=== PATIENT | female | born 1985 | race Caucasian/White ===

== ENCOUNTER 2020-07-15 13:00 | Outpatient (RCR) | payer MEDICAID, SELFPAY ==
[2020-07-08 13:13] VITALS: BP 139/83; PULSE 84; RESP 16; TEMP 36.6; BMI 32.5
--- NOTE | 2020-07-08 13:52 | PCM.WC.PN ---
(1) Spina bifida Status: Chronic Code(s): Q05.9 - Spina bifida, unspecified (2) Peripheral neuropathy Status: Chronic Code(s): G62.9 - Polyneuropathy, unspecified (3) Scoliosis Status: Chronic Code(s): M41.9 - Scoliosis, unspecified (4) Open wound of left great toe Status: Acute Qualifiers: Encounter type: subsequent encounter Qualified Code(s): S91.102D - Unspecified open wound of left great toe without damage to nail, subsequent encounter Code(s): S91.102A - Unspecified open wound of left great toe without damage to nail, initial encounter (5) History of spinal fusion Status: Chronic Code(s): Z98.1 - Arthrodesis status Comment: 2 surgeries. 1 at 1 YOA and the second at 16 YOA Type of Wound Date of Service: 07/08/20 Chief Complaint: She is here to have a wound on the left great toe assessed. She is concerned about the callous formation and the skin peeling. History of Wound: She first noticed the wound on the plantar surface of the L great toe on 06/18/20. She was seen by her PCP and he referred her to the WC ctr at [facility]. She has been dressing the wound with a dry gauze. Progress of Wound: The wound has gotten smaller however there is increased callous formation and some desquamation. Subjective: Aurea Carranza is a 35 YO female with a PMH of spina bifida and peripheral neuropathy in her feet who first noticed a wound on the plantar surface of the left great toe on 06/18/2020. Denied pain in her foot and also denied fever, purulent drainage or erythema of the toe. She saw her primary care physician who referred her to the wound care center. Aurea examines her feet every night. She does on occasion walk barefoot in her house. She does not have any pets. She cannot tell me if she stepped on something that cause the wound initially. She has been applying a dry dressing to the wound and it has gotten much smaller. She is concerned because she now has a callous on the plantar surface of the left great toe and the skin has been peeling off. - Physical Exam Vital Signs Temp Pulse Resp BP 97.8 F 84 16 139/83 H 07/08/20 13:13 07/08/20 13:13 07/08/20 13:13 07/08/20 13:13 General: Alert, Cooperative, No apparent distress, Well developed, Well nourished Extremities: No clubbing, No cyanosis, Capillary Refill Less than 3 Seconds, Peripheral Pulses Normal, - - small amount of ankle edema on the left...most aparent at the medial malleolus. There is a small wound apparent on the plantar surface of the L great toe and there is callous overlying the wound and the surrounding area. There is no erythema and no purulent DC. Skin: - - there was good blood flow from the wound when the callous was debrided. The wound was probed and I did not feel a foreign body. She had no pain with palpation. Wound Measurements and Assessment WC - Nurse 1 - General Ulcer Measurement Start: 07/08/20 13:13 Freq: Status: Active Protocol: Activity Type Activity Date Activity User E-Sign Co-Sign Detail Recorded Client Recorded Date Recorded By Document 07/08/20 13:13 MW [id number] 07/08/20 13:27 MW 07/08/20 13:13 Wound Center Nurse 1 [Ulcer Assessment] #1 left great plantar toe -Combined with other wound No -Current Size (cm) - Length 0.1 -Current Size (cm) - Width 0.1 -Current Size (cm) - Depth 0.1 -Total Square Cm 0.01 -Photo Taken Yes -Epithelialization None Present -Tunneling No -Undermining/Tunneling No -Circular Undermining No -Exudate Amt None Present -Wound Margin Flat & Intact -Granulation Amt None Present (0 %) -Granulation Quality N/A -Slough/Fibrin Yes -Necrosis Amt Small (1-33%) -Necrotic Tissue Type Adherent Slough -Structure Exposed N/A -Texture (Amirah-wound Skin Appearance) Assessed,Callus -Moisture (Amirah-wound Skin Appearance No Abnormality, ) Assessed -Color (Amirah-wound Skin Appearance) No Abnormality, Assessed -Temperature (Amirah-wound Skin No Abnormality Appearance) (Pt Warm) -Tenderness on Palpation (Amirah-wound No Skin Appearance) -Ulcer Cleansing Rinsed/ Irrigated with Saline -Foul Odor after Cleansing No -Anesthetic Used 5% Lidocaine Gel [Edema Assessment] -Lower Limb Edema Present NA -Right Calf (cm) 26.5 -Right Ankle (cm) 19.0 -Left Calf (cm) 27.5 -Left Ankle (cm) 17.5 Debridement Note Laterality: Left Type of Debridement: Selective debridement - The callous was debrided from the Left great toe and there was good bleeding from the wound base. The wound itself was covered with callous and post debridement it is open. Depth: Down to and including healthy tissue, in the subcutaneous layer, - Percentage of wound debrided: 100 Instrument Used: #15 blade Severity: Limited To Skin Breakdown Amount of bleeding with debridement: Mild Bleeding Controlled with: Pressure Patient tolerated procedure well Assessment/Plan Active Problems Spina bifida (Chronic) Peripheral neuropathy (Chronic) Scoliosis (Chronic) Open wound of left great toe (Acute) History of spinal fusion (Chronic) 2 surgeries. 1 at 1 YOA and the second at 16 YOA Assessment: 1. Wound on the plantar surface of the L great toe - suspect this was due to a puncture wound in pt with peripheral neuropathy walking in her bare feet. 2. desaquamation possibly due to localized infection early on. 3. Can not r/o a FB - she has not had an XRAY Plan: 1. Obtain an XRAY of the L great toe to rule out a FB. 2. We educated her on the risks of walking in your bare feet when you have neuropathy. I advised to wear shoes or slippers at all times Inpatient E&M: [id number] Init Hosp L1 Office Visits / Consults: [id number] OV L4 Est
--- NOTE | 2020-07-08 14:15 | RAD_ITS ---
STUDY: X-RAY LEFT FOOT, FIRST TOE REASON FOR EXAM: Female, 35 years old. Looking for foreign body, sore to bottom of first toe TECHNIQUE: 3 view(s) of the toe were obtained. COMPARISON: None. FINDINGS: Normal visualized metatarsus. Normal metatarsophalangeal (M.T.P) joint. Normal interphalangeal joints. Normal phalanges and interphalangeal joints. The soft tissue structures are unremarkable. RAD/Toe(s) Min 2 Views IMPRESSION: No radiopaque foreign body is seen. Electronically Signed: Shailesh Hays, at 15:47 EST , Service support ,
[2020-07-15 13:05] VITALS: BP 138/77; PULSE 87; RESP 16; TEMP 36.5; BMI 32.5
--- NOTE | 2020-07-15 16:16 | PCM.WC.PN ---
(1) Spina bifida Status: Chronic Code(s): Q05.9 - Spina bifida, unspecified (2) Peripheral neuropathy Status: Chronic Code(s): G62.9 - Polyneuropathy, unspecified (3) Scoliosis Status: Chronic Code(s): M41.9 - Scoliosis, unspecified (4) Open wound of left great toe Status: Acute Qualifiers: Encounter type: subsequent encounter Qualified Code(s): S91.102D - Unspecified open wound of left great toe without damage to nail, subsequent encounter Code(s): S91.102A - Unspecified open wound of left great toe without damage to nail, initial encounter (5) History of spinal fusion Status: Chronic Code(s): Z98.1 - Arthrodesis status Comment: 2 surgeries. 1 at 1 YOA and the second at 16 YOA Type of Wound Date of Service: 07/15/20 Chief Complaint: She is here to have a wound on the left great toe assessed. She is concerned about the callous formation and the skin peeling. History of Wound: She first noticed the wound on the plantar surface of the L great toe on 06/18/20. She was seen by her PCP and he referred her to the ctr at [facility]. She has been dressing the wound with a dry gauze. Progress of Wound: The wound has gotten smaller however there is increased callous formation and some desquamation. - Physical Exam Vital Signs Temp Pulse Resp BP 97.7 F L 87 16 138/77 H 07/15/20 13:05 07/15/20 13:05 07/15/20 13:05 07/15/20 13:05 General: Alert, Oriented x3, Cooperative, No apparent distress Extremities: No edema, Capillary Refill Less than 3 Seconds, - - The wound is healed. There was no FB on the XRAY I reviewed. There is a small brownish spot where the wound was probed and debrided last week and it is healed. No erythema and no openning in the skin. Non-tender to palpate. Addt'l Wound Findings: I examined her Left shoe that she normally wears. The left foot is the functional foot and the R foot is somewhat atrophied along with the calf due to spina bifida. She pushes off on her Great toe on the left when walking and this is causing a deep depression where the great toe fits in her shoe. I believe this is what caused the wound...abnormal pressure on the plantar surface of the Left great toe due to neuropathy due to SPina Bifida. Wound Measurements and Assessment WC - Nurse 1 - General Ulcer Measurement Start: 07/08/20 13:13 Freq: Status: Discharge Protocol: Activity Type Activity Date Activity User E-Sign Co-Sign Detail Recorded Client Recorded Date Recorded By Document 07/15/20 13:05 [facility] [id number] 07/15/20 13:09 [facility] Edit Status 07/15/20 13:38 BKG DAEMON Active=>Discharge [id number] 07/15/20 13:38 BKG DAEMON 07/15/20 13:05 Wound Center Nurse 1 [Ulcer Assessment] #1 left great plantar toe -Combined with other wound No -Current Size (cm) - Length 0.1 -Current Size (cm) - Width 0.1 -Current Size (cm) - Depth 0.1 -Total Square Cm 0.01 -Epithelialization Large 67-100% -Texture (Amirah-wound Skin Appearance) Callus -Moisture (Amirah-wound Skin Appearance Dry/Scaly ) -Temperature (Amirah-wound Skin No Abnormality Appearance) (Pt Warm) -Tenderness on Palpation (Amirah-wound No Skin Appearance) -Ulcer Cleansing Rinsed/ Irrigated with Saline -Foul Odor after Cleansing No -Anesthetic Used 5% Lidocaine Gel WC - Nurse 2 - General Ulcer CM Notes Start: 07/08/20 13:13 Freq: Status: Discharge Protocol: Activity Type Activity Date Activity User E-Sign Co-Sign Detail Recorded Client Recorded Date Recorded By Edit Status 07/15/20 13:38 BKG DAEMON Active=>Discharge [id number] 07/15/20 13:38 BKG DAEMON WC - Nurse 3 - General Ulcer D/C NN Start: 07/08/20 13:13 Freq: Status: Discharge Protocol: Activity Type Activity Date Activity User E-Sign Co-Sign Detail Recorded Client Recorded Date Recorded By Edit Status 07/15/20 13:38 BKG DAEMON Active=>Discharge [id number] 07/15/20 13:38 BKG DAEMON Debridement Note Post-Debridement Measurements/Treatment WC - Nurse 2 - General Ulcer CM Notes Start: 07/08/20 13:13 Freq: Status: Discharge Protocol: Activity Type Activity Date Activity User E-Sign Co-Sign Detail Recorded Client Recorded Date Recorded By Document 07/08/20 16:54 PL [id number] 07/08/20 16:55 PL 07/08/20 16:54 Wound Center Nurse 2 #1 left great plantar toe -Time 13:40 -Correct Patient Yes -Correct Side, Site, Position Yes -Correct Procedure Yes -Procedure Performed Yes -Type of Procedure Debridement -Clinical Debridement Subcutaneous -Tissue Removed Subcutaneous -Post Debridement (cm) - Length 0.1 -Post Debridement (cm) - Width 0.1 -Post Debridement (cm) - Depth 0.1 -Total Square (Post) (cm) 0.01 -Area of Debridement (cm) - Length 0.1 -Area of Debridement (cm) - Width 0.1 -Total Square (Area) (cm) 0.01 -Tunneling No -Undermining/Tunneling No -Circular Undermining No -Wound/Ulcer Outcome Not Healed -Ulcer Cleansing Rinsed/ Irrigated with Saline -Foul Odor after Cleansing No -Bioengineered Tissue No -Debridement - Subq, 1st 20sq cm Yes Pain Scale: 0-10 Numeric Is Patient Pain Free? Yes WC - Nurse 3 - General Ulcer D/C NN Start: 07/08/20 13:13 Freq: Status: Discharge Protocol: Activity Type Activity Date Activity User E-Sign Co-Sign Detail Recorded Client Recorded Date Recorded By Document 07/08/20 13:56 MW [id number] 07/08/20 13:57 MW 07/08/20 13:56 Wound Care Nurse 3 #1 left great plantar toe -Ulcer Cleansing Rinsed/ Irrigated with Saline -Foul Odor after Cleansing No -Negative Pressure Wound Therapy N/A -Primary Dressing Covered/Secured with Dry Gauze & Roll Gauze, Secured with Tape Treatment Response Procedure Tolerated Well Pain Scale: 0-10 Numeric Is Patient Pain Free? Yes Teaching: Wound Center Dressing Your Wound -Person Taught Patient -Teaching Method Discussion -Response to teaching Verbalize understanding WC - Visit Discharge Discharge Condition Stable Ambulatory Status Ambulatory,Cane Transportation Private Auto Accompanied by self Medication Reconcilliation completed & No provided to patient/care provider Clinical Summary of Care Provided Yes Wound debrided: plantar surface of the L great toe Laterality: Left Type of Debridement: - - superficial debridement of callous. No bleeding and no openings in the skin.....callous is smaller than when it was derided last week. A 3mm curette was used. Patient tolerated procedure well Assessment/Plan Clinical Impression(s) from Imaging Studies Toe X-Ray 07/08/20 14:15 IMPRESSION: No radiopaque foreign body is seen. Electronically Signed: Shailesh Hays, at 15:47 EST , Service support , Active Problems Spina bifida (Chronic) Peripheral neuropathy (Chronic) Scoliosis (Chronic) Open wound of left great toe (Acute) History of spinal fusion (Chronic) 2 surgeries. 1 at 1 YOA and the second at 16 YOA Assessment: 1. Wound on the plantar surface of the L great toe - suspect this was due to a puncture wound in pt with peripheral neuropathy walking in her bare feet or to abnormal pressure on the great toe when she pushes off this toe walking since the Left foot is much more functional than the right. The wound is healed now and she will be discharged from wound care. 2. desaquamation possibly due to localized infection early on. 3. FB ruled out with an XRAY which I reviewed. Plan: 1. I am referring her to Dr. Richmond for an orthotic to decrease the pressure on the great toe and distribute it more evenly over the left foot. 2. I recommended she get a pumice stone or an Lieferheld board and use this to keep the callous from enlarging and also recommended she moisturize the feet daily with something like Eucerin Intensive repair. Office Visits / Consults: [id number] OV L1 Est
== END 2020-07-15 13:37 | disposition home or self-care (01) ==
LOC: WC 13:00
PROVIDERS: PCP Family Medicine; Referring Provider Student in an Organized Health Care Education/Training Program; Visit Provider Internal Medicine
DX: S91.102A Unspecified open wound of left great toe without damage to nail, initial encounter (principal); L84 Corns and callosities; W22.8XXA Striking against or struck by other objects, initial encounter; Y93.01 Activity, walking, marching and hiking; Y92.9 Unspecified place or not applicable; Y99.9 Unspecified external cause status; G62.9 Polyneuropathy, unspecified; R60.0 Localized edema; Q05.9 Spina bifida, unspecified; M41.9 Scoliosis, unspecified; Z98.1 Arthrodesis status
CPT/HCPCS: 11042; 73660; 99212; 99213; G0463

== ENCOUNTER 2020-09-24 10:29 | Outpatient (RCR) | payer MEDICAID, SELFPAY | END 2020-09-24 23:59 | LOC: IMMUN 10:29 | PROVIDERS: PCP Family Medicine; Referring Provider Family Medicine; Visit Provider Family Medicine | DX: Z23 Encounter for immunization (principal) | CPT/HCPCS: 0011A; 0012A; 91301 ==